=== PATIENT | male | born 1950 | race Caucasian/White ===

== ENCOUNTER 2022-12-13 07:35 | Outpatient (CLI) | payer MEDICARE, SELFPAY ==
--- NOTE | ~2022-12-13 | PE_ITS ---
EXAMINATION: PET skull to mid thigh DATE: 12/13/2022 09:32 INDICATION: Squamous cell carcinoma of tongue. TECHNIQUE: Blood glucose level was 119 mg/dL. 9.697 mCi of 18-fluorodeoxyglucose (18-FDG) was adminis tered i.v. Low dose computed tomography (CT) images were acquired from the base of the brain to the p roximal thighs for attenuation correction and anatomic localization. Automated exposure control was e mployed. Dose-length product (DLP) was 354 mGy-cm. Positron emission tomography (PET) images were acq uired in the same distribution. COMPARISON: Neck CT 06/11/2010 FINDINGS: Head/neck: There are likely changes of ocular lens replacement surgeries. There are mucous retention cysts in the maxillary sinuses. There is soft tissue thickening in the nasopharynx and right posterio r oral cavity with increased activity. There is increased activity in the glottis without CT correlat e, likely physiologic. There are no pathologically enlarged lymph nodes. Chest: There is moderate emphysema. There are changes of wedge resection in right upper lobe. There a re airspace and groundglass opacities in left lower lobe with architectural distortion without increa sed activity, likely infection or scarring. No pleural effusion. The heart size is normal. There are coronary artery calcifications. No pericardial effusion. There is chronic anterior wedging of multipl e vertebral bodies. Abdomen/pelvis/proximal thighs: The liver demonstrates surface nodularity, consistent with cirrhosis. The gallbladder is distended. The pancreas demonstrates dilatation of the main pancreatic duct and c alcifications, consistent with chronic pancreatitis. The spleen, adrenal glands, and kidneys are norm al. Stool distends the rectum. There is diverticulosis of the colon without evidence of diverticuliti s. There are no pathologically enlarged lymph nodes. There is no free intraperitoneal fluid. There is severe lumbar spondylosis. IMPRESSION: 1. Soft tissue thickening in the nasopharynx and right posterior oral cavity with increased activity. These findings are suspicious for primary malignancy. Correlate with direct visualization. 2. Cirrhosis of the liver. 3. Moderate emphysema. Reviewed, dictated and finalized at location A. DER SET UP OPERATOR SURFACE IMPRESSION: 1. Soft tissue thickening in the nasopharynx and right posterior oral cavity wi th increased activity. These findings are suspicious for primary malignancy. Co rrelate with direct visualization. 2. Cirrhosis of the liver. 3. Moderate emphysema.
[2022-12-13 08:08] LABS: Glucose Point of Care 119 mg/dl (65-105)
== END 2022-12-13 07:36 | disposition home or self-care (01) ==
PROVIDERS: PCP Internal Medicine; Visit Provider Internal Medicine Hematology & Oncology
DX: C02.9 Malignant neoplasm of tongue, unspecified (principal); K74.60 Unspecified cirrhosis of liver; J43.9 Emphysema, unspecified; C79.89 Secondary malignant neoplasm of other specified sites
CPT/HCPCS: 78815; A9552

== ENCOUNTER 2022-12-20 13:32 | Outpatient (CLI) | payer MEDICARE, SELFPAY ==
[2022-12-20 13:50] LABS: Basophils Absolute Auto 0.1 K/mm3 (0.0-0.1); Basophils Percent Auto 0.5 % (0.2-1.2); Eosinophils Absolute Auto 0.1 K/mm3 (0-0.3); Eosinophils Percent Auto 0.4 % (0-4.4); Hemoglobin 13.8 g/dL (14.0-18.0); Immature Granulocyte Absolute 0.09 K/mm3 (0.00-0.031); Immature Granulocyte Percent A 0.5 % (0-0.5); Lymphocytes Absolute Auto 1.46 K/mm3 (0.9-3.2); Lymphocytes Percent Auto 7.9 % (18.3-44.2); Mean Corpuscular HGB Conc 32.1 g/dl (32-36); Mean Corpuscular Hemoglobin 32.6 pg (26-34); Mean Corpuscular Volume 101.7 fl (80-100); Mean Platelet Volume 9.8 fl (7.4-10.4); Monocytes Absolute Auto 1.2 K/mm3 (0.1-0.6); Monocytes Percent Auto 6.3 % (2.6-8.5); Neutrophils Absolute Auto 15.6 K/mm3 (1.3-6.7); Neutrophils Percent Auto 84.4 % (45.5-73.1); Platelet Count Result 297 k/mm3 (150-375); Red Blood Count 4.23 M/mm3 (4.6-6.20); Red Cell Distribution Width 12.4 % (11.5-14.5); White Blood Count 18.5 K/mm3 (4.5-10.0)
[2022-12-20 13:56] LABS: Blood Urea Nitrogen 28 mg/dL (8-26); Carbon Dioxide 28 mmol/L (22-30); Chloride 101 mmol/L (98-109); Estimated Glomerular Filt Rate 46; Glucose 160 mg/dL (70-105); Ionized Calcium (POC) 1.62 mmol/L (1.11-1.31); Potassium 3.9 mmol/L (3.5-4.9); Sodium 139 mmol/L (138-146)
[2022-12-20 16:34] LABS: Alanine Aminotransferase 29 U/L (6-50); Albumin Level 3.7 g/dL (3.5-5.1); Alkaline Phosphatase 117 U/L (38-126); Anion Gap 10 mmol/L (8-16); Aspartate Amino Transferase 41 U/L (17-59); Bilirubin,Total 0.7 mg/dL (0.2-1.3); Blood Urea Nitrogen 28 mg/dL (9-20); Calcium 12.5 mg/dL (8.4-10.2); Carbon Dioxide 26 mmol/L (22-30); Chloride 102 mmol/L (98-107); Estimated Glomerular Filt Rate 50; Glucose 152 mg/dL (65-110); Potassium 4.1 mmol/L (3.4-5.0); Sodium 138 mmol/L (137-145)
== END 2022-12-20 13:33 | disposition home or self-care (01) ==
LOC: ANHLAB 13:34
PROVIDERS: PCP Internal Medicine; Visit Provider Internal Medicine Hematology & Oncology
DX: C02.9 Malignant neoplasm of tongue, unspecified (principal)
CPT/HCPCS: 36415; 80047; 80053; 85025

== ENCOUNTER 2022-12-20 14:32 | Observation (INO) | payer MEDICARE, OTHER, SELFPAY ==
--- NOTE | ~2022-12-20 | US_ITS ---
Renal-Bladder ultrasound Clinical History: Acute kidney injury Technique: Real-time sonographic imaging of the kidneys and urinary bladder was performed. Findings: The right kidney measures 10.6 cm in length and the left kidney measures 9.9 cm. There is n o hydronephrosis or renal calculus identified. Renal cortical echogenicity is within normal limits. N o renal mass lesion is identified. The urinary bladder is moderately distended at the time of this exam. No intraluminal echoes are iden tified. No abnormal wall thickening is seen. Impression: Unremarkable ultrasound of the kidneys and urinary bladder. Reviewed, dictated and finalized at location . [facility] Impression: Unremarkable ultrasound of the kidneys and urinary bladder.
[2022-12-20 14:35] VITALS: BP 91/42; PULSE 111; RESP 20; TEMP 36.9; O2SAT 100
[2022-12-20 15:03] LABS: Basophils Absolute Auto 0.1 K/mm3 (0.0-0.1); Basophils Percent Auto 0.5 % (0.2-1.2); Eosinophils Absolute Auto 0.1 K/mm3 (0-0.3); Eosinophils Percent Auto 0.4 % (0-4.4); Hematocrit 41.6 % (42.0-52.0); Hemoglobin 14.1 g/dL (14.0-18.0); Immature Granulocyte Absolute 0.09 K/mm3 (0.00-0.031); Immature Granulocyte Percent A 0.5 % (0-0.5); Lymphocytes Absolute Auto 1.34 K/mm3 (0.9-3.2); Lymphocytes Percent Auto 7.9 % (18.3-44.2); Mean Corpuscular HGB Conc 33.9 g/dl (32-36); Mean Corpuscular Hemoglobin 33.1 pg (26-34); Mean Corpuscular Volume 97.7 fl (80-100); Mean Platelet Volume 9.7 fl (7.4-10.4); Monocytes Absolute Auto 1.2 K/mm3 (0.1-0.6); Monocytes Percent Auto 7.1 % (2.6-8.5); Neutrophils Absolute Auto 14.2 K/mm3 (1.3-6.7); Neutrophils Percent Auto 83.6 % (45.5-73.1); Platelet Count Result 324 k/mm3 (150-375); Red Blood Count 4.26 M/mm3 (4.6-6.20); Red Cell Distribution Width 12.5 % (11.5-14.5); White Blood Count 16.9 K/mm3 (4.5-10.0)
[2022-12-20 15:12] LABS: Alanine Aminotransferase 29 U/L (6-50); Alkaline Phosphatase 126 U/L (38-126); Anion Gap 6 mmol/L (8-16); Aspartate Amino Transferase 42 U/L (17-59); Bilirubin,Total 0.7 mg/dL (0.2-1.3); Blood Urea Nitrogen 28 mg/dL (9-20); Calcium 12.6 mg/dL (8.4-10.2); Carbon Dioxide 29 mmol/L (22-30); Chloride 99 mmol/L (98-107); Estimated CRCL calculation 29 ml/min; Estimated Glomerular Filt Rate 43; Glucose 145 mg/dL (65-110); Lipase 13 U/L (23-300); Potassium 4.3 mmol/L (3.4-5.0); Sodium 134 mmol/L (137-145)
[2022-12-20 16:13] VITALS: BP 113/61; PULSE 85; RESP 20; O2SAT 98
--- NOTE | 2022-12-20 17:07 | ED.GENADULT ---
HPI - General Adult General Chief complaint: Unspecified Stated complaint: dr moura sent pt Time Seen by Provider: 12/20/22 16:08 History of Present Illness HPI narrative: Patient sent by his oncologist for PEG tube placement, he has had throat cancer and has not been able to tolerate taking anything p.o. Reports throat pain but otherwise no difficulty breathing. Related Data Allergies Allergy/AdvReac Type Severity Reaction Status Date / Time No Known Allergies Allergy Unknown Verified 12/20/22 16:19 NKDA Allergy Unknown Unknown Uncoded 12/20/22 16:19 Review of Systems Review of Systems: CONST: No fever. HEENT: Throat pain C/V: No chest pain RESP: No cough GI: Poor p.o. intake : No dysuria. M/S: No joint pain. SKIN: No rash. NEURO: [No headache or focal numbness or weakness] PSYCH: [No depression] [facility] Past Medical History Medical History (Updated 12/20/22 @ 17:25 by Pooja Gamez MD) Throat cancer Exam Narrative: EXAMINATION OF ORGAN SYSTEMS/BODY AREAS: Constitutional: Vital signs per nursing GENERAL:[No acute distress, appears cachectic HEAD: Normal with no signs of head trauma. EYES: EOMI, conjunctiva normal ENT: Dry mucous membranes LUNGS: Nonlabored breathing. HEART: [Regular rate and rhythm] ABD: [Soft], [nontender to palpation] EXT: Normal range of motion SKIN: [No rashes or lesions.] NEURO: [Alert and oriented x 3. No gross focal sensory or strength deficits.] PSYCH: Normal affect Course Vital Signs Vital signs: Vital Signs Temperature 98.4 F 12/20/22 14:35 Pulse Rate 111 H 12/20/22 14:35 Respiratory Rate 20 12/20/22 14:35 Blood Pressure 91/42 L 12/20/22 14:35 Pulse Oximetry 100 12/20/22 14:35 Oxygen Delivery Room Air 12/20/22 14:35 Temperature 98.4 F 12/20/22 14:35 Pulse Rate 85 12/20/22 16:13 Respiratory Rate 20 12/20/22 16:13 Blood Pressure 113/61 12/20/22 16:13 Pulse Oximetry 98 12/20/22 16:13 Oxygen Delivery Room Air 12/20/22 16:13 Medical Decision Making [facility] Narrative Medical decision making narrative: 72-year-old male presenting with poor p.o. intake here for PEG tube placement. Vital signs initially notable for low blood pressure and tachycardia, he is given IV fluids with improvement, labs notable for elevated white count, which appears stable from prior, and elevated creatinine. Case discussed with the hospitalist for admission, case discussed with Dr. Cotter gastroenterology for PEG tube placement. Vital Signs Vital Signs: Vital Signs Temperature 98.4 F 12/20/22 14:35 Pulse Rate 111 H 12/20/22 14:35 Respiratory Rate 20 12/20/22 14:35 Blood Pressure 91/42 L 12/20/22 14:35 Pulse Oximetry 100 12/20/22 14:35 Oxygen Delivery Room Air 12/20/22 14:35 Temperature 98.4 F 12/20/22 14:35 Pulse Rate 85 12/20/22 16:13 Respiratory Rate 20 12/20/22 16:13 Blood Pressure 113/61 12/20/22 16:13 Pulse Oximetry 98 12/20/22 16:13 Oxygen Delivery Room Air 12/20/22 16:13 Lab Data 12/20/22 14:46 12/20/22 14:46 Labs: Lab Results 12/20/22 12/20/22 12/20/22 Range/Units 14:46 14:46 16:26 WBC 16.9 H (4.5-10.0) K/mm3 RBC 4.26 L (4.6-6.20) M/mm3 Hgb 14.1 (14.0-18.0) g/dL Hct 41.6 L (42.0-52.0) % MCV 97.7 (80-100) fl MCH 33.1 (26-34) pg MCHC 33.9 (32-36) g/dl RDW 12.5 (11.5-14.5) % Plt Count 324 (150-375) k/mm3 MPV 9.7 (7.4-10.4) fl Immature Gran % (Auto) 0.5 (0-0.5) % Neut % (Auto) 83.6 H (45.5-73.1) % Lymph % (Auto) 7.9 L (18.3-44.2) % [place] % (Auto) 7.1 (2.6-8.5) % Eos % (Auto) 0.4 (0-4.4) % Baso % (Auto) 0.5 (0.2-1.2) % Lymph # (Auto) 1.34 (0.9-3.2) K/mm3 [place] # (Auto) 1.2 H (0.1-0.6) K/mm3 Eos # (Auto) 0.1 (0-0.3) K/mm3 Baso # (Auto) 0.1 (0.0-0.1) K/mm3 Abs Immat Gran (auto) 0.09 H (0.00-0.031) K/mm3 Absolute Neuts (auto) 14.2 H (1.3-6.7) K/mm3 Ab
[2022-12-20 17:11] LABS: Appearance Urine Cloudy (Clear); Bilirubin Urine 2+ (Negative); Blood Urine Trace-intact (Negative); Color Urine Yellow (Yellow); Glucose Urine UA Negative (Negative); Ketones Urine Trace mg/dL (Negative); Leukocyte Esterase Ur Negative LEU/UL (Negative); Nitrate Urine Negative (Negative); Protein Urine 2+ mg/dL (Negative); Specific Grav Ur >= 1.030 (1.001-1.035)
[2022-12-20 17:12] LABS: Influenza A QL RT-PCR Negative (Negative); Influenza B QL RT-PCR Negative (Negative); RSV RNA, RT-PCR Negative (Negative); SARS-CoV-2 RNA PCR Negative
[2022-12-20] MEDS: LACTATED RINGERS 1,000 ML 999 ML IV CONT (17:12)
[2022-12-20 17:23] LABS: Amorphous Sediment Urine Few; Bacteria Urine Trace /hpf; Hyaline Casts Urine 30-49 /lpf; Mucus Urine Few /lpf; Squamous Epithelial Cell Urine Occasional /hpf (Few)
[2022-12-20 17:27] LABS: Add Urine Microscopic? YES
--- NOTE | 2022-12-20 21:13 | PM.IMHP ---
H&P: HPI History of Present Illness Date/Time: 12/20/22 21:13 Chief Complaint: Weight loss Narrative: This is a 72-year-old male patient who has a history of throat cancer. The patient has not undergone any form of treatment yet. Although the patient states that he thinks he is going to have radiation treatment. The patient has not been able to eat anything he has had poor oral intake and he has lost 32 lb in the last 30 days. The patient is concerned about his nutritional status. The patient stated that he went to see his oncologist today who in turn sent him to the emergency room. The patient is also complaining of some discomfort to his mouth and stated that he no longer has any prescriptions for pain medicine. After searching through his chart it looks like the patient was diagnosed in 2009. He states that he has not had any treatment. He did have a PET scan on 12/16/2022 which was read as the following1. Soft tissue thickening in the nasopharynx and right posterior oral cavity with increased activity. These findings are suspicious for primary malignancy. Correlate with direct visualization. 2. Cirrhosis of the liver. 3. Moderate emphysema. Today the patient's white count is 16.9. Neutrophil percentage 83.6. Sodium 134. BUN 28 creatinine 1.6. Glucose 145. Calcium is 12.6 patient was negative for influenza A/B RC and COVID. -GI has been consulted for PEG tube. Had a very long discussion about A G- tube versus TPN. The patient thought that he could just get TPN and that he would feel better. I explained that with everything he has going on with the cancer that he would need tube feedings. GI has been consulted. I discussed his options with him and I explained that he we could get hospice and we can just give him pain medicine and make him comfortable and he could do nothing or he could have a G-tube placed and get nutritional supplement. The patient is confused on what type of treatment he is going to receive. The patient thought that maybe he was going to get radiation treatment or even maybe chemotherapy. I explained to him if he has chemotherapy he may want to get a Port-A-Cath and he was agreeable to a Port-A-Cath as well. The patient is agreeable to treatment for his throat cancer. Patient is being admitted to observation status on the date of service of 12/20/2022. Blood pressure 132/73. The patient was given IV fluids of lactated Ringer's. Patient is being admitted to observation status on the date of service of 12/20/2022 Review of Systems Review of Systems: See HPI All systems reviewed & are unremarkable except as noted in HPI and below Constitutional: Constitutional: Reports as per HPI and Reports no additional constitutional complaints Eyes: Eyes: Reports as per HPI and Reports no additional eye complaints ENT: Reports system reviewed and no additional complaints, except as documented and Reports Normal hearing present Cardiovascular: Cardiovascular: Reports no additional cardiovascular complaints Respiratory: Respiratory: Reports no additional respiratory complaints and Reports no additional respiratory complaints Gastrointestinal: Gastrointestinal: Reports as per HPI and Reports no additional gastrointestinal complaints Musculoskeletal: Musculoskeletal: Reports no additional musculoskeletal complaints Integumentary/Breasts: Skin/Breast: Reports system reviewed and no additional complaints, except as docu and Reports as per HPI Neurologic: Reports system reviewed and no additional complaints, except as documented, Reports as per HPI and Reports Normal hearing present Psychiatric: Psychiatric: Reports no additional psychiatric complaints and Reports as per HPI Endocrine: Endocrine: Reports no additional endocrine complaints Hematologic/Lymphatic: Hematologic/Lymphatic: Reports no additional hematologic/lymphatic complaints Allergic/Immunologic: Allergic/Immunologic: Reports no additional allergic/immunologic
[2022-12-20 21:45] VITALS: BP 132/73; PULSE 81; RESP 20; TEMP 36.9; O2SAT 99
--- NOTE | 2022-12-20 21:46 | ADMGEN ---
This patient, Bruce Shah, was admitted to Medical Room 346-01. Patient/family oriented to hospital policies and general routines including ID bracelet, bed and alarms, visiting hours, pain management, procedures, bathroom and other care routines, personal items, smoking policy, room service/diet, and visiting hours. Information on how to activate the Rapid Response Team has been discussed. Patient/Family are encouraged to report perceived risks to care and to ask questions if they do not understand what they are told or what they should do.
[2022-12-20] MEDS: LACTATED RINGERS 1,000 ML 100 ML IV CONT (23:38)
[2022-12-20] MEDS: LIDOCAINE HCL 2% VISC SOLN 15 ML UDC PO (23:40)
[2022-12-21] VITALS (9 sets, daily range): BP systolic 90–133; BP diastolic 56–78; PULSE 61–73; RESP 16–20; TEMP 36.5–37.1; O2SAT 92–98; BMI 18.3
[2022-12-21 05:21] LABS: Basophils Absolute Auto 0.1 K/mm3 (0.0-0.1); Basophils Percent Auto 0.4 % (0.2-1.2); Eosinophils Absolute Auto 0.2 K/mm3 (0-0.3); Eosinophils Percent Auto 1.3 % (0-4.4); Hematocrit 34.5 % (42.0-52.0); Hemoglobin 11.6 g/dL (14.0-18.0); Immature Granulocyte Absolute 0.05 K/mm3 (0.00-0.031); Immature Granulocyte Percent A 0.4 % (0-0.5); Lymphocytes Absolute Auto 1.12 K/mm3 (0.9-3.2); Lymphocytes Percent Auto 9.9 % (18.3-44.2); Mean Corpuscular HGB Conc 33.6 g/dl (32-36); Mean Corpuscular Volume 95.3 fl (80-100); Mean Platelet Volume 9.7 fl (7.4-10.4); Monocytes Absolute Auto 0.9 K/mm3 (0.1-0.6); Neutrophils Absolute Auto 9.1 K/mm3 (1.3-6.7); Platelet Count Result 201 k/mm3 (150-375); Red Blood Count 3.62 M/mm3 (4.6-6.20); White Blood Count 11.3 K/mm3 (4.5-10.0)
[2022-12-21 05:29] LABS: Lactic Acid Reflex 0.8 mmol/L (0.7-2.0)
[2022-12-21 05:36] LABS: Alanine Aminotransferase 24 U/L (6-50); Albumin Level 2.9 g/dL (3.5-5.1); Alkaline Phosphatase 97 U/L (38-126); Anion Gap 3 mmol/L (8-16); Aspartate Amino Transferase 37 U/L (17-59); Bilirubin,Total 0.7 mg/dL (0.2-1.3); Blood Urea Nitrogen 30 mg/dL (9-20); CRP 1.5 mg/dL (<1.0); Calcium 11.7 mg/dL (8.4-10.2); Carbon Dioxide 28 mmol/L (22-30); Chloride 106 mmol/L (98-107); Estimated CRCL calculation 34 ml/min; Estimated Glomerular Filt Rate 54; Glucose 101 mg/dL (65-110); Magnesium 1.5 mg/dL (1.6-2.3); Phosphorus 2.7 mg/dL (2.5-4.5); Sodium 137 mmol/L (137-145)
[2022-12-21] MEDS: LACTATED RINGERS 1,000 ML 100 ML IV CONT (09:25)
--- NOTE | 2022-12-21 12:15 | PM.IMPN ---
Progress Note: A&P Assessment and Plan (1) Throat cancer: Code(s): C14.0 - Malignant neoplasm of pharynx, unspecified Status: Acute Assessment and Plan: -the patient had a PET scan on 12/16/2022 which was read as the following?Soft tissue thickening in the nasopharynx and right posterior oral cavity with increased activity. These findings are suspicious for primary malignancy. Correlate with direct visualization. 2. Cirrhosis of the liver. 3. Moderate emphysema. -consult Dr. Lim. (2) Cachexia: Code(s): R64 - Cachexia Status: Acute Assessment and Plan: Dr. Cotter has been consulted for G-tube placement. (3) Hypertension: Code(s): I10 - Essential (primary) hypertension Status: Acute Assessment and Plan: -the patient is having difficulty swallowing any pills. Holding all of his p.o. medication and I will do p.r.n. hydralazine with parameters. (4) Acute kidney injury: Code(s): N17.9 - Acute kidney failure, unspecified Status: Acute Assessment and Plan: -continue to hydrate the patient. Avoid any nephrotoxic medications. The patient had been on lisinopril and that is currently on hold. -renal ultrasound -pre renal azotemia secondary to dehydration. Subjective Date/time seen: 12/21/22 12:15 No new complaints Exam Const: General: cooperative, comfortable, no acute distress, well developed, alert, awake, Physically active, ill appearing, cachectic and thin Nutritional Appearance: cachectic and thin Orientation/consciousness: oriented to person, oriented to place, oriented to time and patient oriented x3 Limitations: no limitations HENMT: Head: normal to inspection, No palpable skull fracture present, normocephalic and atraumatic Ears: hearing grossly normal bilaterally and external ears normal Face/Nose/Sinus: Normal external nose present, Normal nares present and No nasal polyps present Mouth: Yes Normal oral and palatal mucosa present Other: The palate of his mouth has multiple black brownish growth on it. Eyes: General: appearance normal, both eyes and all related structures Alignment and Position: alignment normal Periorbital: periorbital findings normal Eyelids: eyelids normal Conjunctivae: conjunctivae normal Sclera: sclerae normal Pupils: Equal, round and reactive pupils present EOM: EOMs intact bilaterally Neck: Neck: normal visual inspection, full ROM, no lymphadenopathy, trachea midline and supple Chest: Chest palpation & inspection: normal inspection of the chest Resp: Effort & Inspection: normal respiratory effort Auscultation: wheezes Cardio: Palpation: normal PMI Rate: regular rate Rhythm: regular rhythm Heart sounds: S1 normal heart sound present and S2 normal heart sound present Peripheral pulses: Peripheral pulses 2+ throughout GI: Inspection: normal to inspection Auscultation: normal bowel sounds Rectal Exam: deferred Back/Spine/Pelvis: Cervical Spine: cervical ROM normal Skin: General skin exam: normal color Lesions: no lesions Rashes: no rashes Trauma: no lacerations or abrasions Wounds: no wounds Hair: normal Nails: normal Neuro: General: oriented to person, oriented to place, oriented to time and patient oriented x3 Cranial nerves: Yes Equal, round and reactive pupils present and Yes Normal hearing present Cognition (Neuro): normal cognition Speech: normal speech Motor exam (neuro): 5/5 motor strength present throughout Sensory Exam: normal sensation Extrem: General: normal to inspection Right upper extremity: normal to inspection and shoulder/upper arm Left upper extremity: normal to inspection and shoulder/upper arm Right lower extremity: normal to inspection Left lower extremity: normal to inspection Psych: Appearance: grossly normal Mental Status: mental status grossly normal Speech and movement: Normal speech and movement present Affect: normal affect Attitude: cooperative Thought proc
--- NOTE | 2022-12-21 12:34 | PDONCCN ---
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 Patient has a history of throat cancer status post partial glossectomy done more than 10 years ago. He was seen in the office yesterday after the PET scan. He was having significant throat pain and not able to eat and swallow anything. He has been getting weak and tired. He was sent to the ER for evaluation and possible admission for PEG tube placement. He has lost significant amount of weight. PET scan was performed on December 16 that showed soft tissue thickening in the nasopharynx with right posterior oral cavity with increased activity suspicious for malignancy. There was liver cirrhosis and moderate emphysema. Patient pain is under better control. He is now being transported to the GI lab for the peg tube placement. Review of Systems - Review of Systems All systems reviewed & are unremarkable except as noted in HPI and bel - Neurologic Reports system reviewed and no additional complaints, except as documented, Reports hearing normal [facility] Medical History: Medical History (Last Updated 12/20/22 @ 22:53 by Cecile Torres NP) Hypertension Throat cancer Tobacco abuse Surgical History: Surgical History (Last Updated 12/20/22 @ 22:53 by Cecile Torres NP) H/O arthroscopy of right knee Family History: Family History (Last Updated 12/20/22 @ 21:49 by Oumou Hancock RN) Father Heart disease - Social History Social History: Social History (Last Updated 12/20/22 @ 22:55 by Cecile Torres NP) Alcohol Use: Alcohol intake: former Substance Use: Substance use: never Others: Spiritual care concerns: No Smoking Status: Smoking status: Former smoker Tobacco type: cigarettes Second hand tobacco smoke exposure: Yes Smoking Pack-years: Smoking packs per day: 1.5 Smoking cigarettes per day: 30.0 Years smoked: 30 Smoking pack-years: 45.00 Social Determinants of Health: Has the Lack of Transportation Kept You From Medical Appointments or From Getting Medications?: No Within the Past 12 Months, Were You Worried Whether Your Food Would Run Out Before You Got Money to Buy More?: Never True What is Your Housing Situation Today?: I Have Housing Are You Worried That in the Next 2 Months, You May Not Have Your Own Housing to Live In?: No Do You Have Trouble Paying Your Heating Or Electricity Bill?: No Do You Have Trouble Paying For Medicines?: No Are You Currently Unemployed and Looking for Work?: No Highest Level of Education Completed: Associate Degree Do You Have Trouble With Childcare or the Care of a Family Member?: No Exam - Vital Signs Vital Signs - 24 hr 12/20/22 14:35 12/20/22 16:13 12/20/22 21:45 Temperature 36.9 C 36.9 C Pulse Rate 111 H 85 81 Respiratory Rate 20 20 20 Blood Pressure 91/42 L 113/61 132/73 Pulse Oximetry 100 98 99 Oxygen Delivery Room Air Room Air 12/21/22 00:00 12/21/22 06:00 12/21/22 08:27 Temperature 36.9 C Pulse Rate 73 Respiratory Rate 20 Blood Pressure 117/63 Pulse Oximetry 93 92 Oxygen Delivery Room Air Room Air 12/21/22 10:03 12/21/22 08:30 Temperature Pulse Rate Respiratory Rate Blood Pressure Pulse Oximetry Oxygen Delivery Room Air Room Air - Exam HEENT: EOMI, PERRLA Neck: supple. No: JVD Lungs: clear to auscultation, normal air movement Heart: no murmurs, gallops, or rubs, regular rhythm, regular rate Abdomen: abdomen soft, non-distended, normal bowel sounds Extremities: normal pulses Integumentary: no abnormalities Neurological: normal speech Ps
[2022-12-21] MEDS: LACTATED RINGERS 1,000 ML 150 ML IV CONT (12:46)
--- NOTE | 2022-12-21 12:51 | SUR.PREOP ---
Spoke with Dr Cotter- orders not to give a second dose of Ancef since floor RN gave it already.
--- NOTE | 2022-12-21 13:11 | WPDANESEPPF ---
Anes - Initial Pre Proc Eval Procedure: Operation Date: 12/21/22 14:00 Proposed Procedures p Esophagogastroduodenoscopy - Javier Cervantes MD s Replacement of Gastrostomy Tube - Javier Cervantes MD Date/Time: 12/21/22 13:11 Surgeon: Aguila Sewell MD Pre Op Diagnosis: PEG tube placement Patient Data Age: 72 Gender: M Height: 1.7 m Weight: 53 kg Last Vital Signs Temp 97.7 F 12/21/22 12:43 Pulse 69 12/21/22 12:43 Resp 20 12/21/22 12:43 BP 133/67 12/21/22 12:43 Pulse Ox 97 12/21/22 12:43 O2 Del Method Room Air 12/21/22 12:43 Allergies Allergy/AdvReac Type Severity Reaction Status Date / Time No Known Allergies Allergy Unknown Verified 12/21/22 12:42 Home Medications Medication Instructions Recorded Confirmed Type lisinopril 40 mg tablet 40 mg PO DAILY 12/20/22 12/20/22 History olmesartan 40 mg tablet 40 mg PO DAILY 12/20/22 12/20/22 History tramadol 50 mg tablet 50 mg PO QID 12/20/22 12/20/22 History Laboratory Tests 12/20/22 12/20/22 12/20/22 14:46 14:46 16:26 WBC 16.9 K/mm3 H K/mm3 (4.5-10.0) RBC 4.26 M/mm3 L M/mm3 (4.6-6.20) Hgb 14.1 g/dL g/dL (14.0-18.0) Hct 41.6 % L % (42.0-52.0) MCV 97.7 fl fl (80-100) MCH 33.1 pg pg (26-34) MCHC 33.9 g/dl g/dl (32-36) RDW 12.5 % % (11.5-14.5) Plt Count 324 k/mm3 k/mm3 (150-375) MPV 9.7 fl fl (7.4-10.4) Immature Gran % (Auto) 0.5 % % (0-0.5) Neut % (Auto) 83.6 % H % (45.5-73.1) Lymph % (Auto) 7.9 % L % (18.3-44.2) [place] % (Auto) 7.1 % % (2.6-8.5) Eos % (Auto) 0.4 % % (0-4.4) Baso % (Auto) 0.5 % % (0.2-1.2) Lymph # (Auto) 1.34 K/mm3 K/mm3 (0.9-3.2) [place] # (Auto) 1.2 K/mm3 H K/mm3 (0.1-0.6) Eos # (Auto) 0.1 K/mm3 K/mm3 (0-0.3) Baso # (Auto) 0.1 K/mm3 K/mm3 (0.0-0.1) Abs Immat Gran (auto) 0.09 K/mm3 H K/mm3 (0.00-0.031) Absolute Neuts (auto) 14.2 K/mm3 H K/mm3 (1.3-6.7) Absolute Nucleated RBC 0.0 K/mm3 K/mm3 (0.0-0.012) Nucleated RBC % 0.0 % % (0.0-0.2) Sodium 134 mmol/L L mmol/L (137-145) Potassium 4.3 mmol/L mmol/L (3.4-5.0) Chloride 99 mmol/L mmol/L (98-107) Carbon Dioxide 29 mmol/L mmol/L (22-30) Anion Gap 6 mmol/L L mmol/L (8-16) BUN 28 mg/dL H mg/dL (9-20) Creatinine 1.60 mg/dL H mg/dL (0.7-1.3) Estim Creat Clear Calc 29 ml/min ml/min Estimated GFR 43 L (59 - ) Glucose 145 mg/dL H mg/dL (65-110) Lactic Acid Calcium 12.6 mg/dL H mg/dL (8.4-10.2) Phosphorus Magnesium Total Bilirubin 0.7 mg/dL mg/dL (0.2-1.3) AST 42 U/L U/L (17-59) ALT 29 U/L U/L (6-50) Alkaline Phosphatase 126 U/L U/L (38-126) C-Reactive Protein Total Protein 8.0 g/dL g/dL (6.3-8.2) Albumin 4.0 g/dL g/dL (3.5-5.1) Lipase 13 U/L L U/L (23-300) TSH (Reflex) Urine Color Urine Appearance Urine pH Ur Specific [place] Urine Protein Urine Glucose (UA) Urine Ketones Ur Blood (Man) Urine Nitrate Urine Bilirubin Urine Urobilinogen Leukocyte Esterase Rfl Urine RBC Urine WBC Ur Squamous Epith Cells Amorphous Sediment Urine Bacteria Hyaline Casts Urine Mucus Influenza A (RT-PCR) Negative (Negative) Influenza B (RT-PCR) Negative (Negative) RSV (RT-PCR) Negative (Negative) SARS-CoV-2 RNA (RT-PCR) Negative 12/20/22
--- NOTE | 2022-12-21 13:48 | WPDGICN ---
Assessment and Plan Assessment and plan (1) Dysphagia: Code(s): R13.10 - Dysphagia, unspecified Status: Acute Assessment and Plan: will proceed with egd and peg placement (2) Malnutrition: Code(s): E46 - Unspecified protein-calorie malnutrition Status: Acute Assessment and Plan: patient unable to eat g-tube placement (3) Throat cancer: Code(s): C14.0 - Malignant neoplasm of pharynx, unspecified Status: Acute Assessment and Plan: advanced stage with grim prognosis by oncology (4) At risk for dehydration due to poor fluid intake: Code(s): Z91.89 - Other specified personal risk factors, not elsewhere classified Status: Acute (5) Acute kidney injury: Code(s): N17.9 - Acute kidney failure, unspecified Status: Acute Assessment and Plan: treated with fluids and improved monitor (6) Hypertension: Code(s): I10 - Essential (primary) hypertension Status: Acute (7) Cirrhosis: Code(s): K74.60 - Unspecified cirrhosis of liver Status: Acute Assessment and Plan: incidental finding monitor GI Consult Note Consult date/time: 12/21/22 13:48 Reason for consult: dysphagia HPI: Bruce Shah is a 72 year old male with 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 Patient has a history of throat cancer status post partial glossectomy done more than 10 years ago who was seeing by his oncologist who noted more dysphagia, weight loss and malnutrition. Patient has been getting weak and tired and he decided to send him over to ER for admission and PEG tube placement since he has been losing more weight.? PET scan was performed on December 16 that showed soft tissue thickening in the nasopharynx with right posterior oral cavity with increased activity suspicious for malignancy, also cirrhosis. Patient is awake and alert but poor historian. Review of Systems Constitutional: Constitutional: Reports lethargy and Reports weakness Comments: weight loss Eyes: Eyes: Denies blurry vision ENT: Reports Normal hearing present and Reports dysphagia Cardiovascular: Cardiovascular: Denies chest pain Respiratory: Respiratory: Denies chest congestion Gastrointestinal: Comments: dysphagia Genitourinary: Genitourinary: Denies hematuria Musculoskeletal: Musculoskeletal: Denies myalgias Integumentary/Breasts: Skin/Breast: Denies rash Neurologic: Denies Abnormal speech present Psychiatric: Psychiatric: Denies homicidal ideation [facility] Past Medical History Medical History (Updated 12/21/22 @ 15:07 by Javier Cervantes MD) Cirrhosis Dysphagia Hypertension Malnutrition Throat cancer Tobacco abuse Surgical History Surgical History (Updated 12/21/22 @ 12:39 by Migel Lim MD) H/O arthroscopy of right knee Family History Family History (Updated 12/20/22 @ 21:49 by Oumou Hancock RN) Father Heart disease Social History Social History (Updated 12/20/22 @ 22:55 by Cecile Torres NP) Social History: He is retired from [employer]. The patient tells me that he quit smoking on [place] [employer] of this past year. Patient smoked 1-2 packs of cigarettes a day for 30 years or more. Patient used to drink socially. The patient has 2 adult children whom he has no contact. Code status full code Smoking packs per day: 1.5 Smoking cigarettes per day: 30.0 Years smoked: 30 Smoking pack-years: 45.00 Smoking status: Former smoker Tobacco type: cigarettes Second hand tobacco smoke exposure: Yes Alcohol intake: former Substance use: never Lack of Transportation: No Lack of Food: Never True Current Housing: I Have Housing Concerned About Future Housing: No Difficulty Paying Gas/Electric Bills: No Difficulty Paying for Meds: No Currently Unemployed: No Education: Associate Degree Difficulty w/ Childcare
--- NOTE | 2022-12-21 14:29 | SUR.PHASEII ---
Rashmi Hein called report to darcie Ferguson RN 12/21/22 14:30
[2022-12-21] MEDS: MORPHINE SULFATE (*CRX) 2 MG/ML INJ IV PUSH (18:49)
[2022-12-21 20:51] LABS: Glucose Point of Care 109 mg/dl (65-105)
[2022-12-22] MEDS: MORPHINE SULFATE (*CRX) 2 MG/ML INJ IV PUSH ×2 (00:20→04:27)
[2022-12-22] MEDS: LACTATED RINGERS 1,000 ML 100 ML IV CONT ×3 (00:22→21:00)
[2022-12-22 05:58] VITALS: BP 112/61; PULSE 70; RESP 16; TEMP 36.9; O2SAT 93
--- NOTE | 2022-12-22 11:54 | PM.IMPN ---
Progress Note: A&P Assessment and Plan (1) Throat cancer: Code(s): C14.0 - Malignant neoplasm of pharynx, unspecified Status: Acute Assessment and Plan: -the patient had a PET scan on 12/16/2022 which was read as the following?Soft tissue thickening in the nasopharynx and right posterior oral cavity with increased activity. These findings are suspicious for primary malignancy. Correlate with direct visualization. 2. Cirrhosis of the liver. 3. Moderate emphysema. -consult Dr. Lim. (2) Cachexia: Code(s): R64 - Cachexia Status: Acute Assessment and Plan: Status post G-tube placement Continue tube feeds (3) Hypertension: Code(s): I10 - Essential (primary) hypertension Status: Acute Assessment and Plan: -the patient is having difficulty swallowing any pills. Holding all of his p.o. medication and I will do p.r.n. hydralazine with parameters. (4) Acute kidney injury: Code(s): N17.9 - Acute kidney failure, unspecified Status: Acute Assessment and Plan: -continue to hydrate the patient. Avoid any nephrotoxic medications. The patient had been on lisinopril and that is currently on hold. -renal ultrasound -pre renal azotemia secondary to dehydration. Subjective Date/time seen: 12/22/22 11:54 Resting today. G-tube has been placed Exam Const: General: cooperative, comfortable, no acute distress, well developed, alert, awake, Physically active, ill appearing, cachectic and thin Nutritional Appearance: cachectic and thin Orientation/consciousness: oriented to person, oriented to place, oriented to time and patient oriented x3 Limitations: no limitations HENMT: Head: normal to inspection, No palpable skull fracture present, normocephalic and atraumatic Ears: hearing grossly normal bilaterally and external ears normal Face/Nose/Sinus: Normal external nose present, Normal nares present and No nasal polyps present Mouth: Yes Normal oral and palatal mucosa present Other: The palate of his mouth has multiple black brownish growth on it. Eyes: General: appearance normal, both eyes and all related structures Alignment and Position: alignment normal Periorbital: periorbital findings normal Eyelids: eyelids normal Conjunctivae: conjunctivae normal Sclera: sclerae normal Pupils: Equal, round and reactive pupils present EOM: EOMs intact bilaterally Neck: Neck: normal visual inspection, full ROM, no lymphadenopathy, trachea midline and supple Chest: Chest palpation & inspection: normal inspection of the chest Resp: Effort & Inspection: normal respiratory effort Auscultation: wheezes Cardio: Palpation: normal PMI Rate: regular rate Rhythm: regular rhythm Heart sounds: S1 normal heart sound present and S2 normal heart sound present Peripheral pulses: Peripheral pulses 2+ throughout GI: Inspection: normal to inspection Auscultation: normal bowel sounds Rectal Exam: deferred Back/Spine/Pelvis: Cervical Spine: cervical ROM normal Skin: General skin exam: normal color Lesions: no lesions Rashes: no rashes Trauma: no lacerations or abrasions Wounds: no wounds Hair: normal Nails: normal Neuro: General: oriented to person, oriented to place, oriented to time and patient oriented x3 Cranial nerves: Yes Equal, round and reactive pupils present and Yes Normal hearing present Cognition (Neuro): normal cognition Speech: normal speech Motor exam (neuro): 5/5 motor strength present throughout Sensory Exam: normal sensation Extrem: General: normal to inspection Right upper extremity: normal to inspection and shoulder/upper arm Left upper extremity: normal to inspection and shoulder/upper arm Right lower extremity: normal to inspection Left lower extremity: normal to inspection Psych: Appearance: grossly normal Mental Status: mental status grossly normal Speech and movement: Normal speech and movement present Affect: normal affect Attitude: cooperativ
--- NOTE | 2022-12-22 13:39 | WPDGIPROGNO ---
Progress Note: A&P Assessment and Plan (1) Dysphagia: Code(s): R13.10 - Dysphagia, unspecified Status: Acute Assessment and Plan: s/p g-tube, tolerating tube feeding will follow [place], call if questions (2) Throat cancer: Code(s): C14.0 - Malignant neoplasm of pharynx, unspecified Status: Acute Assessment and Plan: follow-up with oncology (3) Cachexia: Code(s): R64 - Cachexia Status: Acute (4) Malnutrition: Code(s): E46 - Unspecified protein-calorie malnutrition Status: Acute Assessment and Plan: now he is getting tube feeding (5) Cirrhosis: Code(s): K74.60 - Unspecified cirrhosis of liver Status: Acute Subjective Date/time seen: 12/22/22 13:39 Interval history: tolerating feeding G-tube at 40ml/h Review of Systems Review of Systems: All systems reviewed & are unremarkable except as noted in HPI and below Exam Const: Other: cachectic, chronically ill appearing HENMT: Mouth: Yes dry mucous membranes Eyes: General: appearance normal, both eyes and all related structures Neck: Neck: no JVD Resp: Auscultation: clear to auscultation bilaterally Cardio: Rate: regular rate Rhythm: regular rhythm GI: Inspection: non-distended GI Palp: Yes Soft to palpation, No Tenderness to palpation present (GI) and No Guarding due to palpation present (GI) Other: g-tube in place Skin: General skin exam: normal color Neuro: Speech: normal speech Extrem: General: normal to inspection Psych: Mental Status: mental status grossly normal Objective Data Vital Signs Vital Signs: Vital Signs - 24 hr 12/21/22 14:28 12/21/22 14:37 12/21/22 14:44 Temperature Pulse Rate 66 66 61 Respiratory Rate 19 19 19 Blood Pressure 104/59 L 90/73 L 113/56 L Pulse Oximetry 96 98 96 Oxygen Delivery Room Air Room Air Room Air 12/21/22 14:00 12/21/22 21:44 12/21/22 21:45 Temperature 98.7 F 98.4 F Pulse Rate 70 72 72 Respiratory Rate 16 18 18 Blood Pressure 133/78 118/60 Pulse Oximetry 93 94 94 Oxygen Delivery Room Air 12/22/22 05:58 12/22/22 12:00 Temperature 98.5 F Pulse Rate 70 Respiratory Rate 16 Blood Pressure 112/61 Pulse Oximetry 93 Oxygen Delivery Room Air Intake/Output Intake/Output: Intake & Output 12/19/22 12/20/22 12/21/22 12/22/22 23:59 23:59 23:59 23:59 Intake Total 1000 2100 1260 Output Total 10 200 600 Balance 990 1900 660 Meds/Results Medications: Active Medications Generic Name Dose Route Start Last Admin Trade Name Freq PRN Reason Stop Dose Admin Hydralazine HCl 10 mg 12/20/22 23:04 Hydralazine Hcl 20 Mg/Ml Vial IV PUSH Q8H PRN Blood Pressure - High Lactated Ringer's 1,000 mls @ 100 mls/hr 12/20/22 23:00 12/22/22 12:00 Lr - Lactated Ringers Iv IV CONT 100 mls/hr .Q10H JACKI Administration Lorazepam 1 mg 12/20/22 23:06 Lorazepam Inj (*Crx) 2 Mg/Ml Vial IV PUSH Q6H PRN Anxiety Morphine Sulfate 2 mg 12/20/22 23:05 12/22/22 04:27 Morphine Sulfate (*Crx) 2 Mg/Ml Inj IV PUSH 2 mg Q4H PRN Administration Pain Rated 7-10 Radiology Results: ITS Impressions Renal Ultrasound 12/21/22 10:32 Impression: Unremarkable ultrasound of the kidneys and urinary bladder. Labs Labs: Laboratory Results - last 24 hr 12/21/22 20:33 POC Capillary Glucose 109 H Amg Follow-up Billing Hospital Follow-up Hospital Follow-up: [id number] [facility] Mod
[2022-12-22 14:00] VITALS: BP 115/64; PULSE 69; RESP 16; TEMP 36.8; O2SAT 94
[2022-12-22 20:00] VITALS: PULSE 93; RESP 18; O2SAT 96
[2022-12-22 20:50] VITALS: BP 134/52; PULSE 93; RESP 18; TEMP 37.1; O2SAT 96
[2022-12-22] MEDS: HYDROcodone/acetaminophen (*CRX) 7.5-325 MG TABLET 1 TAB FEED TUBE (20:59)
--- NOTE | 2022-12-22 23:06 | PDRADONCCN ---
Recommendations Recommendations He has seen Dr. Lim who recommended definitive chemoradiation therapy as the patient did not indicate to him that he had received prior radiation therapy, but he was noted to be a poor historian. However, a patient with pN2B tongue cancer would have been referred for radiation therapy, and one of Dr. Vaughn's office notes from [address] Sneed as being the patient's radiation oncologist. A [facility] admission note on 07/13/2010 describes post-XRT changes on right neck in the examination section. In addition, a nutrition consultation note from 07/14/2010 reports that the patient States he has lived on Ensure for the last 8 months since his teeth no longer fit due to radiation. Prior to seeing Mr Shah an attempt was made to locate his radiation therapy records. Upon discussion with Dr. Vaughn, due to changes in electronic medical record systems over time, he does not have access to patient records from 2009. Mr. Shah's radiation treatment was not performed at [facility], and we have contacted [facility], [facility], and several radiation oncology centers near [facility] in [place] and none of these facilities have a record of Mr. Shah being treated. Upon subsequent discussion with Mr Shah and describing a typical course of H&N radiation, he stated that he was treated in [place] at [facility]. Unfortunately, those records are in the possession of the prior radiation oncologist and are not available. We will reach out to his previous medical oncologist (Dr Fer Paalcio in [place]) and his primary care physician to inquire as to whether they have any records from 2009 detailing the radiation treatment he received for his advanced tongue cancer. I had a lengthy discussion with him about the management options for his head and neck cancer including the potential role of radiation therapy. Due to prior H&N radiation, the treatment options for his current oropharyngeal cancer are more limited. For definitive treatment, he should be evaluated by an Oncologic H&N Surgeon - recommend either the [facility] ([facility]) or [facility] ([facility]). Palliative chemotherapy is an alternative option +/- Proton Therapy to maximally spare previously irradiated nearby normal tissues - this treatment modality is available at [facility] and [facility]. However, even when protons are utilized, the risk of late toxicity - potentially serious and requiring surgery - is significantly increased due to prior in-field radiation. Mr Shah expressed good understanding of the issues discussed, and his questions were addressed to his apparent satisfaction. He is interested in treatment; however, he immediate concerns are regarding his pain management, placement after discharge from the hospital, and transportation for treatment. I have discussed my recommendations with his referring physician, Dr Lim. Thank you for asking me to assist in the care of your patient. If any further questions or concerns should arise, please do not hesitate to contact me. Cecile Foley Mai, MD Approximately 100 minutes total time was spent on the patient's consultation today including reviewing his medical records and imaging studies in preparation for the consultation, time spent with the patient including counseling of the patient on treatment recommendations, documentation, and coordination of care. More than half the time was spent discussing treatment options and potential risks and benefits. This note was transcribed using '[employer]', a computerized voice recognition without a human horticultural agent. This report may or may not have been adjusted for typographical, grammatical and syntax errors. 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
[2022-12-23 05:42] LABS: Anion Gap 2 mmol/L (8-16); Blood Urea Nitrogen 17 mg/dL (9-20); Calcium 10.9 mg/dL (8.4-10.2); Carbon Dioxide 28 mmol/L (22-30); Chloride 104 mmol/L (98-107); Estimated CRCL calculation 54 ml/min; Estimated Glomerular Filt Rate > 60; Glucose 137 mg/dL (65-110); Potassium 3.7 mmol/L (3.4-5.0); Sodium 134 mmol/L (137-145)
[2022-12-23 05:52] VITALS: BP 126/68; PULSE 78; RESP 18; TEMP 36.4; O2SAT 97
[2022-12-23] MEDS: LACTATED RINGERS 1,000 ML 100 ML IV CONT (06:27)
--- NOTE | 2022-12-23 11:47 | PM.DS ---
DS: Admitting Diagnosis Discharge Date December 23, 2022 Admitting Diagnosis Cachexia DS: Discharge Diagnosis Discharge Diagnosis (1) Throat cancer: Code(s): C14.0 - Malignant neoplasm of pharynx, unspecified Status: Acute Assessment and Plan: -the patient had a PET scan on 12/16/2022 which was read as the following?Soft tissue thickening in the nasopharynx and right posterior oral cavity with increased activity. These findings are suspicious for primary malignancy. Correlate with direct visualization. 2. Cirrhosis of the liver. 3. Moderate emphysema. -consult Dr. Lim. (2) Cachexia: Code(s): R64 - Cachexia Status: Acute Assessment and Plan: Status post G-tube placement Continue tube feeds (3) Hypertension: Code(s): I10 - Essential (primary) hypertension Status: Acute Assessment and Plan: -the patient is having difficulty swallowing any pills. Holding all of his p.o. medication and I will do p.r.n. hydralazine with parameters. (4) Acute kidney injury: Code(s): N17.9 - Acute kidney failure, unspecified Status: Acute Assessment and Plan: -continue to hydrate the patient. Avoid any nephrotoxic medications. The patient had been on lisinopril and that is currently on hold. -renal ultrasound -pre renal azotemia secondary to dehydration. DS: Summary Hospital Course Hospital Course: Admitted for significant weight loss and cachexia secondary to throat cancer. G-tube placed. Tube feeds will be continued. Follow-up with Oncology and Radiation Oncology Time Spent with Patient Time attestation: Total time spent providing and/or coordinating discharge services: Exam Const: General: cooperative, comfortable, no acute distress, well developed, alert, awake, Physically active, ill appearing, cachectic and thin Nutritional Appearance: cachectic and thin Orientation/consciousness: oriented to person, oriented to place, oriented to time and patient oriented x3 Limitations: no limitations HENMT: Head: normal to inspection, No palpable skull fracture present, normocephalic and atraumatic Ears: hearing grossly normal bilaterally and external ears normal Face/Nose/Sinus: Normal external nose present, Normal nares present and No nasal polyps present Mouth: Yes Normal oral and palatal mucosa present Other: The palate of his mouth has multiple black brownish growth on it. Eyes: General: appearance normal, both eyes and all related structures Alignment and Position: alignment normal Periorbital: periorbital findings normal Eyelids: eyelids normal Conjunctivae: conjunctivae normal Sclera: sclerae normal Pupils: Equal, round and reactive pupils present EOM: EOMs intact bilaterally Neck: Neck: normal visual inspection, full ROM, no lymphadenopathy, trachea midline and supple Chest: Chest palpation & inspection: normal inspection of the chest Resp: Effort & Inspection: normal respiratory effort Auscultation: wheezes Cardio: Palpation: normal PMI Rate: regular rate Rhythm: regular rhythm Heart sounds: S1 normal heart sound present and S2 normal heart sound present Peripheral pulses: Peripheral pulses 2+ throughout GI: Inspection: normal to inspection Auscultation: normal bowel sounds Rectal Exam: deferred Back/Spine/Pelvis: Cervical Spine: cervical ROM normal Skin: General skin exam: normal color Lesions: no lesions Rashes: no rashes Trauma: no lacerations or abrasions Wounds: no wounds Hair: normal Nails: normal Neuro: General: oriented to person, oriented to place, oriented to time and patient oriented x3 Cranial nerves: Yes Equal, round and reactive pupils present and Yes Normal hearing present Cognition (Neuro): normal cognition Speech: normal speech Motor exam (neuro): 5/5 motor strength present throughout Sensory Exam: normal sensation Extrem: General: normal to inspection Right upper extremity: normal to inspection and shoulder/up
--- NOTE | 2022-12-23 13:11 | PCDIET ---
Spoke with nursing today, patient is tolerating tube feedings of Jevity 1.5 at 65 ml/hr. Plans for discharge with PEG tube feedings of Jevity 1.5 at 65 ml/hr. Providing 2145 kcals/91 gms protein/1087 ml water. Flush 30 ml q 4 hours. Agree with diet orders.
[2022-12-23 14:00] VITALS: BP 123/68; PULSE 81; RESP 20; TEMP 36.1; O2SAT 97
[2022-12-23 14:40] LABS: EDCOVIDSCREEN Negative (Negative)
== END 2022-12-23 15:40 ==
LOC: ANHED 17:32 → ANH3MED 21:16
PROVIDERS: Emergency Medicine; Internal Medicine Gastroenterology; Nurse Practitioner; Admitting Provider Internal Medicine; Emergency Provider Emergency Medicine; PCP Internal Medicine; Visit Provider Chiropractor
PROC: 0DJ08ZZ Inspection of Upper Intestinal Tract, Via Natural or Artificial Opening Endoscopic (ICD-10-PCS; CPT 43235; principal; 2022-12-21 14:00)
PROC: 0DH63UZ Insertion of Feeding Device into Stomach, Percutaneous Approach (ICD-10-PCS; CPT 43246; 2022-12-21 14:00)
DX: C14.0 Malignant neoplasm of pharynx, unspecified (principal); R64 Cachexia; I10 Essential (primary) hypertension; N17.9 Acute kidney failure, unspecified; E46 Unspecified protein-calorie malnutrition; Z20.822 Contact with and (suspected) exposure to COVID-19; K74.60 Unspecified cirrhosis of liver; I95.9 Hypotension, unspecified; E86.0 Dehydration; J43.9 Emphysema, unspecified; Z68.1 Body mass index [BMI] 19.9 or less, adult; R00.0 Tachycardia, unspecified; D72.829 Elevated white blood cell count, unspecified; R79.89 Other specified abnormal findings of blood chemistry; F10.91 Alcohol use, unspecified, in remission; Z87.891 Personal history of nicotine dependence; Z85.810 Personal history of malignant neoplasm of tongue; Z79.891 Long term (current) use of opiate analgesic; Z79.899 Other long term (current) drug therapy
CPT/HCPCS: 36415; 43246; 51701; 76775; 80047; 80048; 80053; 81001; 82948; 83605; 83690; 83735; 84100; 84443; 85025; 86140; 87086; 87426; 87637; 96360; 96361; 96374; 96375; 96376; 97161; 97165; 99285; A9270; C9803; G0378; J0131; J0690; J2270; J2370; J2704; J7120